=== PATIENT | female | born 1935 | race Caucasian/White ===

== ENCOUNTER 2022-09-25 14:32 | Outpatient (CLI) | payer MEDICARE, OTHER, SELFPAY | END 2022-09-25 14:33 | disposition home or self-care (01) | LOC: INJ CL 14:34 | PROVIDERS: Visit Provider Family Medicine | DX: M17.11 Unilateral primary osteoarthritis, right knee (principal); M25.561 Pain in right knee | CPT/HCPCS: 64454 ==